=== PATIENT | female | born 1955 | race Caucasian/White ===

== ENCOUNTER 2024-06-23 09:54 | Emergency (ER) | payer OTHER, MEDICARE, SELFPAY ==
[2024-06-23] VITALS (13 sets, daily range): BP systolic 120–133; BP diastolic 64–72; PULSE 69–89; RESP 12–19; TEMP 36.6; O2SAT 94–100
--- NOTE | ~2024-06-23 | XR_ITS ---
EXAMINATION: XR chest 2V DATE: 06/23/2024 11:09 INDICATION: Shortness of breath. TECHNIQUE: Frontal and lateral views of the chest were obtained. COMPARISON: None. FINDINGS: There is no pneumonia, pleural effusion, or pneumothorax. The heart size is normal. Surgica l clips in the right upper quadrant are likely from cholecystectomy. There are surgical clips in the chest wall bilaterally. IMPRESSION: 1. No acute cardiopulmonary disease. Reviewed, dictated and finalized at location A.
--- NOTE | ~2024-06-23 | CT_ITS ---
EXAMINATION: CTA chest PE abdomen pel DATE: 06/23/2024 12:58 INDICATION: Shortness of breath. TECHNIQUE: Computed tomography angiography (CTA) of the chest was performed with 100 mL Omnipaque-350 intravenous contrast timed to evaluate the pulmonary arteries. Coronal maximum intensity projection 3D-reconstructions were created by the technologist. Computed tomography (CT) of the abdomen and pelv is was performed with intravenous contrast. Automated exposure control and iterative reconstruction t echnique were employed. The dose-length product was 1261.76 mGy-cm. COMPARISON: Chest 2 views 06/23/2024 FINDINGS: CTA chest: The lungs demonstrate mild atelectasis. No pleural effusion. The heart size is normal. No pericardial effusion. There is no pulmonary embolus. There is moderate thoracic spondylosis. CT abdomen and pelvis: The liver demonstrates surface nodularity, consistent with cirrhosis. There ar e changes of cholecystectomy. Pneumobilia is noted, likely secondary to sphincterotomy. The spleen, p ancreas, and adrenal glands are normal. There is cortical thinning of the kidneys. There are approxim ately 8 stones in right kidney measuring up to 3 mm. There are 6 stones in left kidney measuring up t o 2 mm. There is a 7 mm cyst in left kidney. There is diverticulosis of the colon without evidence of diverticulitis. There are no dilated loops of bowel. The appendix is normal. There are no pathologic ally enlarged lymph nodes. There is no free intraperitoneal fluid. There is a chronic right L5 pars d efect. There is severe lumbar spondylosis. IMPRESSION: 1. No pulmonary embolus. 2. Cirrhosis of the liver. Reviewed, dictated and finalized at location A.
--- NOTE | 2024-06-23 10:04 | ECG_ITS ---
Test Date: 2024-06-23 10:12:10 Measurements Intervals [place] Rate: 80 P: -34 MA: 141 QRS: 23 QRSD: 88 T: 23 QT: 386 QTc: 448 Interpretive Statements SINUS RHYTHM WITH SINUS ARRHYTHMIA NONSPECIFIC T-WAVE ABNORMALITY ABNORMAL ECG No previous ECG available for comparison Electronically Signed On 06-23-2024 13:16:57 CDT by Rasheed Bates M.D.
--- NOTE | 2024-06-23 10:51 | ED_ITS ---
HPI - Weakness General Chief complaint: Weakness Stated complaint: weakness Time Seen by Provider: 06/23/24 10:13 Source: patient, family and RN notes reviewed Mode of arrival: ambulatory Limitations: no limitations History of Present Illness HPI Narrative: This is a 68 year old female with history of DM who presents for evaluation of weakness. PAtient states 1 month ago she started dealing with an upper respirat ory illness. She was given inhaler and antibiotics. She was initially feeling better but starting 2 weeks ago she develop nausea. She reports decreased appetite, intermittent epigastric abdominal pain, fatigue. She feels like she can't get a full breath at time. She reports epigastric discomfort with eating at time. She denies abdominal pain, vomiting, diarrhea today. She is from out of town. She takes ozempic. Related Data Allergies Allergy/AdvReac Type Severity Reaction Status Date / Time levofloxacin Allergy Rash Verified 06/23/24 10:08 Review of Systems Constitutional: Constitutional: Reports fatigue and Reports weakness Cardiovascular: Cardiovascular: Denies syncope, Denies rapid heart rate, Denies irregular heart rhythm, Denies leg edema and Reports dyspnea Respiratory: Respiratory: Reports chest congestion, Reports cough, Denies hemoptysis, Denies excessive phlegm production and Reports dyspnea Gastrointestinal: Gastrointestinal: Reports abdominal pain, Denies hematochezia, Denies diarrhea, Reports nausea and Reports vomiting Genitourinary: Genitourinary: Denies hematuria, Denies nocturia and Denies dysuria Musculoskeletal: Musculoskeletal: Denies joint swelling, Denies loss of height and Reports muscle weakness Neurologic: Denies syncope, Denies focal weakness and Reports weakness PMFSH Past Medical History Medical History (Updated 06/23/24 @ 13:28 by Bozena Dickey MD) Diabetes mellitus Surgical History Surgical History (Updated 06/23/24 @ 13:43 by Bozena Dickey MD) Hx of cholecystectomy Social History Social History (Updated 06/23/24 @ 10:52 by Bozena Dickey MD) Smoking status: Never smoker Alcohol intake: never Exam Const: General: alert and ill appearing Nutritional Appearance: obese Orientation/consciousness: patient oriented x3 Limitations: no limitations HENMT: Head: normal to inspection Eyes: EOM: EOMs intact bilaterally Resp: Effort & Inspection: normal respiratory effort Auscultation: clear to auscultation bilaterally, no crackles and no rales Cardio: Rate: regular rate Rhythm: regular rhythm Heart sounds: no murmurs GI: GI Palp: Yes Soft to palpation, No Tenderness to palpation present (GI), No Guarding due to palpation present (GI) and No Rigid due to palpation Auscultation: normal bowel sounds Skin: General skin exam: normal color Rashes: no rashes Neuro: General: patient oriented x3 and moves all extremities Cranial nerves: Yes Nystagmus not present Extrem: General: no pedal edema Psych: Mental Status: mental status grossly normal Affect: normal affect Attitude: cooperative Course Reevaluation(s) Reevaluation #1: I spoke with patient and her daughter about labs and CT. CT shows kidney stones and no obstruction. I also discussed CT shows possible cirrhosis. PAtient will be discharged with antibiotics, antiemetic and PPI. I Discussed eating and hydration. I explained to patient and nurse explained that she will need to do oral hydration as she does not have hypotension and signs of severe dehydration to warrant IV fluids. She is able to tolerate PO. Date: 06/23/24 Time: 13:19 Vital Signs Vital signs: Vital Signs Pulse Rate 73 06/23/24 10:04 Respiratory Rate 12 06/23/24 10:04 Pulse Oximetry 100 06/23/24 10:04 Temperature 97.9 F 06/23/24 10:05 Pulse Rate 75 06/23/24 13:15 Respiratory Rate 15 06/23/24 13:15 Blood Pressure 133/64 06/23/24 10:46 Pulse Oximetry 96 06/23/24 12:16 Oxygen Delivery Room Air 06/23/24 10:05 MDM - Weakness Differential Diagnosis Differential diagnosis: Likely anemia, hypoglycemia, hypothyroidism, sepsis and dehydration Lab Data Attestation: I reviewed the patient's lab results. 06/23/24 11:10 06/23/24 11:10 Labs: Lab Results 06/23/24 06/23/24 Range/Units 11:10 11:36 WBC 6.0 (4.5-10.0) K/mm3 RBC 5.29 (4.2-5.4) M/mm3 Hgb 13.4 (12.0-15.0) g/dL Hct 43.3 (37.0-47.0) % MCV 81.9 (80-100) fl MCH 25.3 L (26-34) pg MCHC 30.9 L (32-36) g/dl RDW 15.4 H (11.5-14.5) % Plt Count 174 (150-375) k/mm3 MPV 11.5 H (7.4-10.4) fl Immature Gran % (Auto) 0.2 (0-0.5) % Neut % (Auto) 64.1 (45.5-73.1) % Lymph % (Auto) 23.8 (18.3-44.2) % [place] % (Auto) 9.0 H (2.6-8.5) % Eos % (Auto) 2.2 (0-4.4) % Baso % (Auto) 0.7 (0.2-1.2) % Lymph # (Auto) 1.42 (0.9-3.2) K/mm3 [place] # (Auto) 0.5 (0.1-0.6) K/mm3 Eos # (Auto) 0.1 (0-0.3) K/mm3 Baso # (Auto) 0.0 (0.0-0.1) K/mm3 Abs Immat Gran (auto) 0.01 (0.00-0.031) K/mm3 Absolute Neuts (auto) 3.8 (1.3-6.7) K/mm3 Absolute Nucleated RBC 0.000 (0.0-0.012) K/mm3 Nucleated RBC % 0.0 (0.0-0.2) % PT 13.6 (11.1-14.7) Seconds INR 1.0 APTT 32.9 (22.3-36.8) Seconds D-Dimer 1.76 H (<0.48) ug/mL Sodium 137 (137-145) mmol/L Potassium 3.6 (3.4-5.0) mmol/L Chloride 101 (98-107) mmol/L Carbon Dioxide 24 (22-30) mmol/L Anion Gap 12 (4-12) mmol/L BUN 12 (7-17) mg/dL Creatinine 0.90 (0.7-1.0) mg/dL Estim Creat Clear Calc Not Reportable Estimated GFR > 60 (59 - ) Glucose 140 H (65-110) mg/dL Calcium 9.3 (8.4-10.2) mg/dL Magnesium 1.8 (1.6-2.3) mg/dL Total Bilirubin 1.0 (0.2-1.3) mg/dL AST 48 H (14-36) U/L ALT 51 H (6-35) U/L Alkaline Phosphatase 138 H (38-126) U/L Troponin I < 0.012 (0.000-0.034) ng/mL NT-Pro-B Natriuret Pep 29 (19.9-100) pg/mL Total Protein 8.0 (6.3-8.2) g/dL Albumin 4.2 (3.5-5.1) g/dL Lipase 146 (23-300) U/L Urine Color Yellow (Yellow) Urine Appearance Cloudy H (Clear) Urine pH 6.0 (5.0-9.0) Ur Specific [place] 1.015 (1.001-1.035) Urine Protein Trace (Negative) mg/dL Urine Glucose (UA) Negative (Negative) mg/dL Urine Ketones Negative (Negative) mg/dL Ur Blood (Man) Negative (Negative) Urine Nitrate Positive H (Negative) Urine Bilirubin Negative (Negative) Urine Urobilinogen 1.0 (<2.0) mg/dL Add Ur Microanalysis Reviewed Leukocyte Esterase Rfl 1+ H (Negative) CATHERINE/UL Urine RBC 0-2 (0-2) /hpf Urine WBC 21-50 H (0-3) /hpf Ur Squamous Epith Cells Few (Few) /hpf Urine Bacteria 4+ H /hpf Urine Casts 6-10 Hepatitis A IgM Ab Negative (Negative) Hep Bs Antigen Negative (Negative) Hep B Core IgM Ab Negative (Negative) Hepatitis C Ab Screen Negative (Negative) Influenza A (RT-PCR) Negative (Negative) Influenza B (RT-PCR) Negative (Negative) RSV (RT-PCR) Negative (Negative) SARS-CoV-2 RNA (RT-PCR) Negative (Negative) Imaging Data Radiologist's impression: ITS Impressions Chest X-Ray 06/23/24 11:20 IMPRESSION: 1. No acute cardiopulmonary disease. Chest/Abdomen/Pelvis CTA 06/23/24 13:00 IMPRESSION: 1. No pulmonary embolus. 2. Cirrhosis of the liver. ECG Data EKG #1: Attestation: I personally reviewed and interpreted this ECG as follows: ECG completion date: 06/23/24 ECG completion time: 10:12 EKG Interpretation: normal rate (80), sinus rhythm, NL axis and no acute changes Discharge Plan Discharge Clinical Impression: Elevated liver enzymes UTI (urinary tract infection) Qualifiers: Urinary tract infection type: site unspecified Patient Disposition: Home, Self-Care Condition: Stable Instructions: Antibiotic Form, General Patient Instructions, Fatigue (ED), Urinary Tract Infection in Older Adults (ED) Additional Instructions: I recommend that you eat and push fluids. Call your primary care provider on Tuesday. Take medication as prescribed. Prescriptions: New ondansetron 4 mg tablet,disintegrating 4 mg PO Q6H PRN (Reason: nausea and vomiting) Qty: 14 0RF famotidine [Pepcid] 20 mg tablet 20 mg PO BID Qty: 14 0RF cefdinir 300 mg capsule 300 mg PO Q12H Qty: 20 0RF Follow-up/Referrals: PHYSICIAN NOT ON STAFF,NONSTAFF [Primary Care Provider] -
[2024-06-23] MEDS: ONDANSETRON INJ 4 MG/2 ML VIAL IV PUSH (11:11)
[2024-06-23] MEDS: FAMOTIDINE 20 MG/2 ML VIAL IV PUSH (11:14)
[2024-06-23 11:16] LABS: Basophils Percent Auto 0.7 % (0.2-1.2); Eosinophils Absolute Auto 0.1 K/mm3 (0-0.3); Eosinophils Percent Auto 2.2 % (0-4.4); Hematocrit 43.3 % (37.0-47.0); Hemoglobin 13.4 g/dL (12.0-15.0); Immature Granulocyte Absolute 0.01 K/mm3 (0.00-0.031); Immature Granulocyte Percent A 0.2 % (0-0.5); Lymphocytes Absolute Auto 1.42 K/mm3 (0.9-3.2); Lymphocytes Percent Auto 23.8 % (18.3-44.2); Mean Corpuscular HGB Conc 30.9 g/dl (32-36); Mean Corpuscular Hemoglobin 25.3 pg (26-34); Mean Corpuscular Volume 81.9 fl (80-100); Mean Platelet Volume 11.5 fl (7.4-10.4); Monocytes Absolute Auto 0.5 K/mm3 (0.1-0.6); Neutrophils Absolute Auto 3.8 K/mm3 (1.3-6.7); Neutrophils Percent Auto 64.1 % (45.5-73.1); Platelet Count Result 174 k/mm3 (150-375); Red Blood Count 5.29 M/mm3 (4.2-5.4); Red Cell Distribution Width 15.4 % (11.5-14.5)
[2024-06-23 11:27] LABS: Prothrombin Time 13.6 Seconds (11.1-14.7)
[2024-06-23 11:28] LABS: Partial Thromboplastin Time 32.9 Seconds (22.3-36.8)
[2024-06-23 11:34] LABS: D Dimer 1.76 ug/mL (<0.48)
[2024-06-23 11:36] LABS: Alanine Aminotransferase 51 U/L (6-35); Albumin Level 4.2 g/dL (3.5-5.1); Alkaline Phosphatase 138 U/L (38-126); Anion Gap 12 mmol/L (4-12); Aspartate Amino Transferase 48 U/L (14-36); Blood Urea Nitrogen 12 mg/dL (7-17); Calcium 9.3 mg/dL (8.4-10.2); Carbon Dioxide 24 mmol/L (22-30); Chloride 101 mmol/L (98-107); Estimated Glomerular Filt Rate > 60; Glucose 140 mg/dL (65-110); Lipase 146 U/L (23-300); Magnesium 1.8 mg/dL (1.6-2.3); Potassium 3.6 mmol/L (3.4-5.0); Sodium 137 mmol/L (137-145)
[2024-06-23 11:50] LABS: Add Urine Microscopic? YES; Appearance Urine Cloudy (Clear); Bacteria Urine 4+ /hpf; Bilirubin Urine Negative (Negative); Blood Urine Negative (Negative); Color Urine Yellow (Yellow); Glucose Urine UA Negative (Negative); Ketones Urine Negative (Negative); Leukocyte Esterase Ur 1+ LEU/UL (Negative); Need Manual Microscopic Reviewed; Nitrate Urine Positive (Negative); Protein Urine Trace mg/dL (Negative); RBC Urine 0-2 /hpf (0-2); Specific Grav Ur 1.015 (1.001-1.035); Squamous Epithelial Cell Urine Few /hpf (Few); WBC Urine 21-50 /hpf (0-3)
--- NOTE | 2024-06-23 11:50 | PC.NURSE ---
Patient ambulated to the restroom with steady gate
[2024-06-23 11:52] LABS: Influenza A QL RT-PCR Negative (Negative); Influenza B QL RT-PCR Negative (Negative); RSV RNA, RT-PCR Negative (Negative); SARS-CoV-2 RNA PCR Negative (Negative)
[2024-06-23 11:54] LABS: NT Pro B Type Natriuretic Pept 29 pg/mL (19.9-100); Troponin I < 0.012 ng/mL (0.000-0.034)
[2024-06-23 12:41] LABS: Hepatitis B Surface Antigen Negative (Negative)
[2024-06-23 12:47] LABS: HAV RESULT Negative (Negative); Hepatitis B Core IgM Result Negative (Negative)
[2024-06-23 12:59] LABS: Hepatitis C Virus Antibody Negative (Negative)
== END 2024-06-23 13:48 | disposition home or self-care (01) ==
PROVIDERS: Emergency Provider General Practice
DX: N39.0 Urinary tract infection, site not specified (principal); R74.01 Elevation of levels of liver transaminase levels; R06.89 Other abnormalities of breathing; Z20.822 Contact with and (suspected) exposure to COVID-19; Z90.49 Acquired absence of other specified parts of digestive tract; K74.60 Unspecified cirrhosis of liver; R94.31 Abnormal electrocardiogram [ECG] [EKG]
CPT/HCPCS: 36415; 71046; 71275; 74177; 80053; 80074; 81001; 83690; 83735; 83880; 84484; 85025; 85380; 85610; 85730; 87086; 87186; 87637; 93005; 96374; 96375; 99284; J2405; Q9967